=== PATIENT | male | born 1950 | race Caucasian/White ===

== ENCOUNTER 2016-10-17 18:24 | Observation (INO) | payer MEDICARE, OTHER ==
[2016-10-17] MEDS ORDERED: NITROGLYCERIN 0.4 MG 25 EA TAB SL ONE ×4 (18:29→22:54)
[2016-10-17] MEDS ORDERED: ASPIRIN (CHEWABLE) 81 MG TAB PO ONE (18:29)
--- NOTE | 2016-10-17 18:33 | ED.PDOC ---
History of Present Illness - General Chief Complaint: Chest Pain/AR Stated Complaint: Chest pain Time Seen by Provider: 10/17/16 18:29 Source: patient, RN notes reviewed Exam Limitations: no limitations - History of Present Illness Initial Comments: Patient reports intermittent chest pain that radiates to his arms and left neck with associated nausea, SOB and diaphoresis. Pain eases with rest and worsens with activity. He went to the dentist and had 2 teeth pulled today. When they gave him the lidocaine he said his chest pain got much worse. Similar to prior cardiac issues. He has 4 coronary stents, last placed in 2014. Timing/Duration: 7-24 hours - Noticed when he woke this morning at 6:30am Severity: moderate - currently 5/10 Location: substernal, central Activities at Onset: activity Prior Chest Pain/Cardiac Workup: angina, cardiac cath Improving Factors: rest Worsening Factors: movement - activity Nitro Today/Relief: no nitro taken today, 0.4 mg x 3 Associated Symptoms: chest pain, diaphoresis, nausea/vomiting, shortness of breath, weakness - in legs Allergies/Adverse Reactions: Allergies NO KNOWN ALLERGY Allergy (Verified 10/17/16 18:49) Review of Systems - Review of Systems Constitutional: States: diaphoresis, weakness. Denies: chills, fever, malaise EENTM: States: no symptoms reported Respiratory: States: short of breath. Denies: cough, stridor Cardiology: States: chest pain - Radiates to bilateral arms, L neck and mid back . Denies: edema, palpitations, syncope Gastrointestinal/Abdominal: States: nausea. Denies: abdominal pain, vomiting Genitourinary: States: no symptoms reported Musculoskeletal: States: back pain Skin: States: no symptoms reported Neurological: States: weakness - Bilateral legs when his chest pain gets bad Hematologic/Lymphatic: States: no symptoms reported Family Medical History - Family History Father Hx Cardiac Disease: Yes Physical Exam - Physical Exam General Appearance: Alert, No apparent distress, Well Developed, Well Groomed, Well Hydrated, Well Nourished Neck: non-tender, full range of motion, supple, normal inspection Respiratory: chest non-tender, lungs clear, normal breath sounds, no respiratory distress, no accessory muscle use Cardiovascular/Chest: regular rate, rhythm, no edema, no gallop, no JVD, no murmur Gastrointestinal/Abdominal: normal bowel sounds, non tender, soft Extremity: normal range of motion, non-tender, normal inspection Neurologic: no motor/sensory deficits, alert, normal mood/affect, oriented x 3 Skin Exam: normal color, warm/dry Lymphatic: no adenopathy Comments: Vital Signs - 24 hr 10/17/16 10/17/16 10/17/16 18:30 18:31 18:41 Temperature 99.5 F Pulse Rate [RA] 90 Respiratory 20 16 20 Rate Blood Pressure 169/99 142/87 [RA] O2 Sat by Pulse 99 100 Oximetry 10/17/16 19:29 Temperature Pulse Rate [RA] 86 Respiratory 20 Rate Blood Pressure 122/76 [RA] O2 Sat by Pulse 96 Oximetry Progress - Progress Progress: 10/17/16 18:41 Patient noted some initial improvement after 1st SLNTG but pain quickly returned. Will given 2nd dose. 10/17/16 18:45 Still no improvement in CP after 2nd SLNTG, if no improvement after #3 will give Morphine. 10/17/16 20:20 Pain improved with Morphine but not resolved. Will admit for cardiac rule out - Discussed with Hospitalist Will give another 4mg of Morphine and 1" of Nitropaste - Results/Orders Results/Orders: Laboratory Tests 10/17/16 18:39 WBC 9.7 RBC 4.94 Hgb 16.7 Hct 49.2 MCV 99.5 H MCH 33.7 H MCHC 33.8 RDW 13.5 Plt Count 169 MPV 8.7 Absolute Neuts (auto) 7.80 H Absolute Lymphs (auto) 0.50 L Absolute Monos (auto) 1.20 H Absolute Eos (auto) 0.00 Absolute Basos (auto) 0.00 Neutrophils % 80.8 H Lymphocytes % 5.5 L Monocytes % 12.8 H Eosinophils % 0.4 L Basophils % 0.5 D-Dimer, Quantitative < 200 Sodium 133 L Potassium 3.8 Chloride 100 L Carbon Dioxide 24 Anion Gap 12.8 BUN 21 H Creatinine 0.89 BUN/Creatinine Ratio 23.6 H Random Glucose 149 H Serum Osmolality 272.2 L Calcium 9.4 Total Bilirubin 0.6 AST 20 ALT 20 Alkaline Phosphatase 77 Creatine Kinase 185 H CK-MB (CK-2) 4.0 CK-MB (CK-2) % 2.16 Troponin I < 0.02 Serum Total Protein 7.0 Albumin 4.5 Globulin 2.5 Albumin/Globulin Ratio 1.8 - EKG/XRAY/CT EKG: Sinus, no ST T wave changes Comments: Rate 91bpm Departure - Departure Clinical Impression: Angina at rest Chest pain Qualifiers: Chest pain type: chest pain due to myocardial ischemia Qualifier Code: (I20.9) Angina pectoris, unspecified Time of Disposition: 20:19 Disposition: Admit Patient Condition: Fair Decision To Admit - Decistion To Admit Decision to Admit Reason: Admit from ER - Cardiac Rule out
[2016-10-17] MEDS ORDERED: MORPHINE SULFATE INJ 10 MG/ML VIAL IV ONE ×2 (18:53→20:11)
--- NOTE | 2016-10-17 19:18 | RAD ---
EXAM DESCRIPTION: Chest,1 View CLINICAL HISTORY: Atypical chest wall pain COMPARISON: None FINDINGS: Cardiac silhouette is within normal limits. Aorta is tortuous. EKG leads project over the chest. There is no focal parenchymal or pleural disease. There is no acute osseous process visualized. IMPRESSION: No evidence of acute cardiopulmonary disease. Electronically signed by: Emerson Asencio MD 10/17/2016 7:17 PM CDT
[2016-10-17] MEDS ORDERED: NITROGLYCERIN 2% 1 GM UD TOP ONE (20:11)
[2016-10-17] MEDS ORDERED: ONDANSETRON INJ 4 MG/2 ML VIAL IV ONE (20:24)
[2016-10-17] MEDS ORDERED: NITROGLYCERIN 0.4 MG/HR PATCH TOP ONE (22:29)
[2016-10-17] MEDS ORDERED: MORPHINE SULFATE INJ 10 MG/ML VIAL IV PRN (22:54)
[2016-10-17] MEDS ORDERED: ACETAMINOPHEN 325 MG TAB PO PRN (22:54)
[2016-10-17] MEDS: NITROGLYCERIN 0.4 MG 25 EA TAB SL PRN ×3 (22:56→23:48)
[2016-10-17] MEDS ORDERED: IV SET AND CAP CHANGE INJ INJ SCH (23:00)
[2016-10-17] MEDS ORDERED: SODIUM CHLORIDE 0.9% 500ML 500 ML IVS ONE (23:08)
[2016-10-17] MEDS: SODIUM CHLORIDE 0.9% (FLUSH) 10 ML SYG IV PRN (23:15)
[2016-10-17] MEDS ORDERED: ENOXAPARIN SODIUM 80 MG/0.8 ML SYG SUBCU ONE (23:22)
[2016-10-18] MEDS ORDERED: ALPRAZolam 0.25 MG TAB PO ONE (00:05)
[2016-10-18] MEDS ORDERED: SODIUM CHLORIDE 0.9% 10 ML VIAL ONE (00:06)
[2016-10-18] MEDS: SODIUM CHLORIDE 0.9% (FLUSH) 10 ML SYG IV PRN (00:10)
[2016-10-18 00:23] VITALS: O2SAT 95
[2016-10-18] MEDS ORDERED: NITROGLYCERIN/D5W IV 250 ML IVS ONE (00:59)
[2016-10-18] MEDS ORDERED: NITROGLYCERIN/D5W IV 250 ML IVS SCH (01:30)
[2016-10-18] MEDS ORDERED: SODIUM CHLORIDE 0.9% 500ML 500 ML IVS ONE (01:30)
[2016-10-18 07:39] VITALS: BP 125/69; TEMP 98.7
[2016-10-18] MEDS ORDERED: NITROGLYCERIN 0.4 MG/HR PATCH TOP SCH (09:00)
[2016-10-18] MEDS ORDERED: ASPIRIN TABLET 325 MG TAB PO SCH (09:00)
[2016-10-18] MEDS ORDERED: SODIUM CHLORIDE 0.9% (FLUSH) 10 ML SYG IV SCH (09:00)
--- NOTE | 2016-10-18 11:02 | SSS ---
SUPERVISING PHYSICIAN: Vimal Saini MD CHIEF COMPLAINT: Chest pain. HISTORY OF PRESENT ILLNESS: Mr. Vazquez is a 66 year-old male paroxysmal atrial tachycardia with a significant cardiac history, having had multiple stents x4 in the last several years with the last coronary stent being placed in 2014. Today he reported to the Emergency Department reporting he has had intermittent chest pains radiating to his arms, throughout the neck and associated with nausea, shortness of breath, diaphoresis. The pain was eased with some rest but worsened with any activity. He noted he had gone to the dentist on the date of admission and had 2 teeth pulled. When he was given lidocaine he started having significant chest pains. He also notes he has been having these chest pains over the last 30 days that have steadily become worse at times where he can not even walk across the room without becoming significantly symptomatic. In the Emergency Department, initially his pain was rated 5/10. He was given 3 nitro with some relief and then morphine resulted in complete relief. Initially, cardiac enzymes were negative as well as EKG which showed nonspecific ST changes, No ST elevation, more of a sinus rhythm. Given that he was pain-free and no changes in laboratory studies or EKG, the patient was placed in observation for further rule out acute myocardial injury and placed on telemetry. Approximately 2 hours after being on telemetry, his pain returned and described it as tightness in his chest that started radiating once again to both arms. He was once again given nitro with good results and some relief. Initially, he had a nitro patch placed in the Emergency Room. This was changed to a nitro patch at 0.4 mics per hour and again given some morphine. Given that his pain was unstable and returned even at rest and was slowly escalating, given the patient's significant cardiac history, the patient is now going to be transferred to [facility] for cardiology consultation and further evaluation. He was stable on admission to the medical/ surgical floor and at time of transfer. PAST MEDICAL HISTORY: 1. Cardiovascular disease with multiple coronary stents with last stent being placed in 2014. 2. Hypertension. 3. Diabetes mellitus type 2 on oral therapy. PAST SURGICAL HISTORY: 1. Double hernia repair. 2. Hemorrhoidectomy. 3. Left knee scope. 4. Coronary stents x4, last in 2014. HOME MEDICATIONS: Please refer to updated list in electronic medical records for a verified list of home medications. ALLERGIES: No known drug allergies. FAMILY HISTORY: Significant for cardiac disease. SOCIAL HISTORY: The patient lives in [place], recently moved to [place]. He is , he is an [employer] , currently retired from [employer]. He did smoke in the past but has stopped since 1996. He denies any alcohol or illicit drug use. REVIEW OF SYSTEMS: CONSTITUTIONAL: Noted some diaphoresis and weakness but denies any chills, fever or malaise. HEENT: Denies any symptoms. RESPIRATORY: Notable for shortness of breath as noted in the history of present illness but denies any cough or stridors. CARDIOVASCULAR: As noted in the history of present illness, positive for chest pain that radiates down left arm, left neck and back. Denies any edema, palpitations or syncopal episodes. GI: Does note some nausea but denies any vomiting, abdominal pain, diarrhea or constipation. : Denies increased dysuria, hematuria or other urinary symptoms. NEUROLOGICAL: Notes he has had some weakness in bilateral legs when he has the chest pains and with any exertional dyspnea but denies any syncopal episodes, PHYSICAL EXAMINATION: VITAL SIGNS: At time of transfer, Blood pressure 125/69, pulse 61, saturation 95% on room air with temperature 98.1,. Admission weight 79.1 kilograms. GENERAL: On admission to the medical/surgical floor, the patient was in no distress, however, after his chest pains the patient became quite anxious but he is well groomed and well hydrated and appears to be well-nourished. HEENT: Tympanic membranes clear bilaterally. Oropharynx pink and moist without any lesions. NECK: No jugular venous distention. CHEST: Clear to auscultation bilaterally without notable rhonchi, rales, or wheezes. CARDIOVASCULAR: Regular rate and rhythm without appreciable murmurs, rubs, or gallops. ABDOMEN: Soft, non-tender, positive bowel sounds. EXTREMITIES: No cyanosis, clubbing, or edema. NEUROLOGIC: Alert and oriented x3 with no motor or sensory deficits noted. LABORATORY: CBC on admission showed a white count 9.7, hemoglobin 16.7, hematocrit 49.2, platelet count 169,000, differential did show a left shift. Coagulation studies showed PT/PTT to be normal with a D dimer less than 200. Chemistries showed slightly low sodium of 133, potassium 3.8, BUN 21, creatinine 0.9. Glucose 149, calcium 94, magnesium 1.9. Liver function studies within normal limits. Initial CPK was elevated at 185, repeat prior to discharge was 143. Troponin x2 was less then 0.2 initially and 6 hours post admission was less than 0.02. Initial EKG showed normal sinus rhythm with no ST changes noted. Repeat EKG at time of onset of chest pains prior to discharge showed a normal sinus rhythm with no ST changes or ischemic changes noted. RADIOLOGY: Chest x-ray per radiology interpretation showed no evidence of acute cardiopulmonary disease. ASSESSMENT: 1. Chest pain with unstable angina with no ST elevation or enzyme elevation with the patient having a significant cardiac past history with previous stents, last being in 2014. 2. Hypertension. 3. Diabetes mellitus type 2. 4. History of significant cardiovascular disease with multiple coronary stents. HOSPITAL COURSE: The patient was initially admission from the Emergency Department with chest pain in the Emergency Room that resolved prior to admission to the medical/surgical floor. He was admitted in stable condition and placed on telemetry for rule out of further myocardial injury. He was placed on telemetry and approximately 2 hours after admission started having additional chest pains at rest and was given initially a nitro patch 0.4 per hour and sublingual nitro which did resolve with good result in the pain, decreased somewhat from initial reported 7/10 down to 4/10. He was given a bolus of normal saline as he did have a slight drop in his blood pressure in order to initiate a nitro drip to further control his pain. He was given some morphine which did decrease the pain to some degree but was again intermittent both in intensity and radiating to both arms. Given the patient's significant cardiovascular history with previous stents last being in 2014 and the intermittent chest pains being unstable despite patient resting, the patient requires transfer to higher level of care for further evaluation with cardiology services. PLAN: The patient initially was admitted to the medical/surgical floor and put on telemetry. He was given aspirin in the Emergency Department and placed on a nitro patch. He is now going to be transferred to [facility] for further high level of care for cardiology as there are none available at [facility]. Dr. Marte, hospitalist at [facility], graciously accepted the patient in transfer to [facility]. The patient is to be transferred via ground ambulance with emergency room specialist, necktie operator pockets and pieces and a nitro drip in place. The patient is stable at discharge. Vital signs: blood pressure showed to be 125/69 with pulse 61, saturation 95% on room air. The pain was 2/10. The patient's condition at transfer was stable but guarded. Once the patient is discharged, he will need close followup with primary care physician in [place], he currently sees providers at [facility]. #[id number] MTDD
== END 2016-10-18 01:50 | disposition short-term general hospital (02) ==
LOC: ER 18:24 → MS 20:16
PROVIDERS: ADMIT Nurse Practitioner Family; ATTEND Nurse Practitioner Family
DX: I25.110 Atherosclerotic heart disease of native coronary artery with unstable angina pectoris (principal); R07.2 Precordial pain; I10 Essential (primary) hypertension; E11.9 Type 2 diabetes mellitus without complications; I47.1 Supraventricular tachycardia; R06.02 Shortness of breath; Z95.5 Presence of coronary angioplasty implant and graft; Z79.84 Long term (current) use of oral hypoglycemic drugs; Z87.891 Personal history of nicotine dependence; Z82.49 Family history of ischemic heart disease and other diseases of the circulatory system
CPT/HCPCS: 36415; 71010; 80053; 82550 ×2; 82553 ×2; 83735; 84484 ×2; 85025; 85379; 85610; 85730; 93005; 94760 ×2; J1650; J2270 ×3; J2405; J7040 ×2

== ENCOUNTER → 2017-06-22 | Outpatient (CLI) | payer MEDICARE, OTHER ==
--- NOTE | 2017-06-23 05:34 | RAD ---
EXAM DESCRIPTION: Chest,2 Views CLINICAL HISTORY: DYSPNEA COMPARISON: 10/17/2016 FINDINGS: Frontal and lateral views of the chest. Tortuosity of the thoracic aorta. Heart is not enlarged. Mild chronic interstitial opacities are unchanged. No consolidation, pneumothorax, or pleural effusion. No displaced rib fractures identified. Upper abdominal soft tissues are unremarkable. IMPRESSION: 1. No acute pneumonic process identified. Electronically signed by: George Alonzo 06/23/2017 5:33 AM [facility]
== END | disposition home or self-care (01) ==
LOC: RAD 16:13
PROVIDERS: ATTEND Nurse Practitioner Family
DX: R06.00 Dyspnea, unspecified (principal)

== ENCOUNTER 2017-12-15 17:39 | Observation (INO) | payer MEDICARE, OTHER ==
--- NOTE | 2017-12-15 17:51 | ED.PDOC ---
History of Present Illness - General Chief Complaint: Cardiovascular Problem Stated Complaint: chest pain Time Seen by Provider: 12/15/17 17:50 Source: patient Exam Limitations: no limitations - History of Present Illness Initial Comments: Angelo Vazquez 67 y/o male with history of DM2 and cardiac stent placement x 3 came to er with on and off dull chest pains for the last two weeks sometimes walking just a few feet aggravates it.This afternoon stated he was taking it easy and ahd another chest pain symptoms which was worse than previous symptoms got clammy with SOB.Decided to come to ER.Had taken 4 baby aspirins today but no NTG.Stated had stress test done in [facility] a year ago but stated no abnormalities noted so no further cardiac work up done.His chest pains eased off on arrival at ER. Timing/Duration: other - see hpi Severity/Quality: dull Location: central Chest Pain Radiation: arms Activities at Onset: rest Prior Chest Pain/Cardiac Workup: angina, stress test, other - see hpi Improving Factors: nothing Worsening Factors: nothing Nitro Today/Relief: no nitro taken today Aspirin Treatment Today: 81 mg x 4 Associated Symptoms: shortness of breath Allergies/Adverse Reactions: Allergies NO KNOWN ALLERGY Allergy (Verified 12/15/17 17:54) Review of Systems - Review of Systems EENTM: States: no symptoms reported Respiratory: States: no symptoms reported Cardiology: States: see HPI Gastrointestinal/Abdominal: States: no symptoms reported Genitourinary: States: no symptoms reported All other Systems: Reviewed and Negative, No Change from Baseline Past Medical History (General) - Patient Medical History Hx Seizures: No Hx Stroke: No Hx Asthma: No Hx of COPD: No Hx Cardiac Disorders: Yes Hx Congestive Heart Failure: Yes Hx Pacemaker: No Hx Hypertension: Yes Hx Diabetes: Yes Hx Cancer: No Hx MRSA: No Surgical History: other - hernia repair ,cardiac stent - Social History Hx Alcohol Use: No Hx Substance Use: No Hx Physical Abuse: No Hx Emotional Abuse: No Family Medical History - Family History Father Living Status: Hx Family Asthma: No Hx Family Congestive Heart Failure: Yes Hx Family Hypertension: Yes Hx Family Stroke: No Hx Cardiac Disease: Yes Hx Family Diabetes: No Hx Family Cancer: No Physical Exam - Physical Exam General Appearance: Alert, Comfortable, No apparent distress Eyes, Ears, Nose, Throat Exam: normal ENT inspection Neck: non-tender, full range of motion, normal inspection Respiratory: chest non-tender, lungs clear, normal breath sounds, no respiratory distress Cardiovascular/Chest: normal peripheral pulses, regular rate, rhythm, no murmur Peripheral Pulses: radial,right: 2+, radial,left: 2+ Gastrointestinal/Abdominal: normal bowel sounds, non tender, soft, no organomegaly Extremity: non-tender, normal inspection, no pedal edema, no calf tenderness Neurologic: alert, oriented x 3 Skin Exam: normal color, warm/dry Progress - Progress Progress: 12/15/17 19:13 Vital Signs - 8 hr 12/15/17 12/15/17 17:45 19:03 Temperature 97.9 F 97.2 F L Pulse Rate [ 71 59 L pulse ox] Respiratory 20 18 Rate Blood Pressure 157/98 138/85 [Left Arm] O2 Sat by Pulse 98 97 Oximetry - Results/Orders Results/Orders: Stated he is on diuretics,potassium pill,cholesterol pill but he ran out of his cholesterol and potassium pill the last 2 weeks.Prescription send thru mail. 12/15/17 18:00 EKG STAT 12/15/17 19:15 KCl 40Meq/Ns [NS W/ KCL 40 meq/Liter] 1,000 ml IVS .QD 12/15/17 20:42 URINALYSIS Stat 12/15/17 21:19 ED Intent to Admit Routine Laboratory Results - last 24 hr 12/15/17 12/15/17 12/15/17 18:00 18:00 20:12 WBC 8.4 RBC 4.86 Hgb 16.8 Hct 48.3 MCV 99.4 H MCH 34.6 H MCHC 34.9 RDW 13.8 Plt Count 216 MPV 7.7 Absolute Neuts (auto) 5.70 Absolute Lymphs (auto) 1.60 Absolute Monos (auto) 1.00 H Absolute Eos (auto) 0.10 Absolute Basos (auto) 0.00 Neutrophils % 67.5 Lymphocytes % 18.9 L Monocytes % 11.6 H Eosinophils % 1.5 Basophils % 0.5 PT 9.3 L INR 0.800 PTT (SP) 31.5 D-Dimer, Quantitative < 230 Sodium 126 L Potassium 3.0 L Chloride 88 L Carbon Dioxide 27 Anion Gap 14.0 BUN 11 Creatinine 0.88 BUN/Creatinine Ratio 12.5 Random Glucose 149 H Serum Osmolality 255.6 L Calcium 9.3 Magnesium 2.1 Total Bilirubin 0.5 Direct Bilirubin < 0.1 Indirect Bilirubin 0.4 AST 25 ALT 29 Alkaline Phosphatase 69 Creatine Kinase 194 H CK-MB (CK-2) 5.4 H* CK-MB (CK-2) % 2.78 Troponin I 0.02 0.04 B-Natriuretic Peptide 33.2 Serum Total Protein 7.3 Albumin 4.3 Recommended to go to [facility]- patient wants to stay here in [place] after discussing ekg and lab result that initially no acute myocardial injury noted. - EKG/XRAY/CT EKG: Sinus Comments: HR-62;pr interval:212 ms XRAY: chest - no acute heart/lung abnormalities Departure - Departure Clinical Impression: Hypokalemia, Hyponatremia with decreased serum osmolality Chest pain Qualifiers: Chest pain type: chest pain due to myocardial ischemia Ischemic chest pain type : unspecified angina pectoris type Qualified Code(s): I20.9 - Angina pectoris, unspecified Time of Disposition: 21:21 Disposition: Admit Patient Departure Forms: Patient Portal Self Enrollment Referrals: Saray Dobson NP [Primary Care Provider] - 1-2 Weeks Decision To Admit - Decistion To Admit Decision to Admit Reason: Admit from ER - chest pain R/O HI Decision to Admit Date: 12/15/17 - D/W Ubaldo Mccollum-ANP/Hospitalist Decision to Admit Time: 21:19
--- NOTE | 2017-12-15 18:24 | RAD ---
EXAM DESCRIPTION: Chest,1 View CLINICAL HISTORY: pain COMPARISON: 06/22/2017 FINDINGS: Cardiac silhouette is within normal limits. There is no focal parenchymal or pleural disease. Visualized osseous structures are within normal limits. IMPRESSION: No evidence of acute cardiopulmonary disease. Electronically signed by: Julio Wall 12/15/2017 6:23 PM CDT
[2017-12-15] MEDS: KCL 40MEQ/NS 1,000 ML IVS PRN (19:24)
[2017-12-15] MEDS ORDERED: NITROGLYCERIN 0.4 MG/HR PATCH TOP ONE (19:29)
[2017-12-15] MEDS ORDERED: ATORVASTATIN 20 MG TAB PO ONE (21:20)
[2017-12-15] MEDS ORDERED: ALPRAZolam 0.25 MG TAB PO ONE (21:36)
--- NOTE | 2017-12-15 21:39 | HP ---
SUPERVISING PHYSICIAN: Vimal Saini MD CHIEF COMPLAINT: Chest pain. HISTORY OF PRESENT ILLNESS: This is a 67-year-old male patient who came to the Emergency Room at around 6 PM with chest pain. The patient does have a history of coronary artery disease. He has had stents in the past, but has had some dull chest pains on and off for the last two weeks. He states that just some simple walking aggravates it at times, but today he had chest pain with pressure and bilateral arm pain. He got clammy along with some shortness of breath, took four aspirin and came to the Emergency Room. At that point, his pain seemed to be resolving. In the Emergency Room, he was noted to have negative troponin and his EKG showed sinus rhythm with no acute ST changes. His potassium and sodium were low. He stated he takes potassium pills with his diuretics, but ran out of some his medications approximately two weeks. He gets them via mail order through the [facility] and sees the [facility] for all of his medical issues. He had a subsequent troponin which was also negative and, therefore, he was referred for observation for rule out acute coronary syndrome. At time of examination, the patient states he has a little bit of discomfort in his chest, but no shortness of breath and no overt pain at this time. He states he took some Prilosec [id number] as well due to his pain thinking it might have been some reflux as well. PAST MEDICAL HISTORY: 1. Coronary artery disease. 2. Hypertension. 3. Hyperlipidemia. 4. Diabetes mellitus. 5. Congestive heart failure. 6. He used to have kidney infections, but does not have them any longer. 7. PTSD. PAST SURGICAL HISTORY: 1. Multiple hernia repairs. He had inguinal hernia repairs as well as abdominal hernia repairs with revisions in the past. 2. Appendectomy within one of those surgeries. 3. Percutaneous transluminal coronary angioplasty with stents x4 I believe he said in the past. I am not sure which vessels those were. CURRENT MEDICATIONS: The patient does not know his medications off the top of his head. He is going to get a family member to get them for him. He knows he takes lisinopril, metoprolol, BuSpar and Zoloft, but does not know the dosing. That is not all the medications he takes, either. ALLERGIES: NO KNOWN DRUG ALLERGIES. FAMILY HISTORY: Coronary artery disease in his father who is . SOCIAL HISTORY: The patient had a distant history of smoking. He smoked a pack per day until 1996, then quit. He rarely drinks. No illegal drugs in the past. REVIEW OF SYSTEMS: CONSTITUTIONAL: No fever or chills. No recent weight loss or weight gain. HEENT: No headaches, vision changes, ear pain, nasal congestion or throat pain. RESPIRATORY: No cough, hemoptysis or pleuritic chest pain. CARDIOVASCULAR: Positive for chest pain. No palpitations or peripheral edema. GASTROINTESTINAL: No nausea, vomiting, diarrhea, constipation or abdominal pain. GENITOURINARY: No dysuria, frequency or flank pain. HEMATOLOGIC: No easy bruising and no transfusion reaction. ENDOCRINE: No polydipsia, polyuria, polyphagia. No heat or cold intolerance. NEUROLOGIC: No dizziness, syncope, paresthesias. PHYSICAL EXAMINATION: VITAL SIGNS: Blood pressure 130/70. Heart rate 52. Respiratory rate 20. Temperature 97.5. Oxygen saturation 98%. GENERAL: Mr. Vazquez is a 67-year-old male who is in no active distress currently. HEENT: Normocephalic, atraumatic. Pupils are equal and reactive. No nasal drainage. Throat with moist mucosa. NECK: Supple. Midline trachea. No jugular venous distention. CHEST: Symmetrical with equal rise and fall of the chest with inspiration and expiration. Lung sounds are clear to auscultation bilaterally. CARDIOVASCULAR: Regular rate and rhythm. Normal S1, S2. ABDOMEN: Soft. Positive bowel sounds. GENITOURINARY: Deferred. EXTREMITIES: Lower extremities with no edema. Peripheral pulses are 2+. Capillary refill is less than 2 seconds. NEUROLOGIC: The patient is alert and oriented. Moves all extremities. Extraocular movements are intact. LABORATORIES AND FILMS: Chest x-ray with no acute abnormalities. White count normal, hemoglobin 16.8, sodium 126, potassium 3.0, chloride 88, CO2 27, BUN 11 , creatinine 0.88, glucose 149, calcium 9.3. Troponin 0.02 and subsequent troponin 0.04. ASSESSMENT: 1. Chest pain, rule out acute coronary syndrome. 2. History of coronary artery disease status post stents in the past. 3. Hypertension, currently controlled. 4. Diabetes mellitus. 5. Hypokalemia. PLAN: At this point, we will place him on a chest pain protocol which will be serial EKGs and cardiac enzymes. So far, they are negative. He does have a history of coronary artery disease, there is always the concern for an actual event. We are going to put him on a proton pump inhibitor as well and reevaluate him in the morning. The serial labs will be throughout the night and they will call with any positive results or worsening in his condition. Once he has his home medications here, we can verify those and resume those as well. #[id number] [facility]
[2017-12-15] MEDS ORDERED: ACETAMINOPHEN 325 MG TAB PO PRN (21:53)
[2017-12-15] MEDS ORDERED: SODIUM CHLORIDE 0.9% (FLUSH) 10 ML SYG IV PRN (21:53)
[2017-12-15] MEDS ORDERED: NITROGLYCERIN 0.4 MG 25 EA TAB SL PRN (21:53)
[2017-12-15] MEDS ORDERED: IV SET AND CAP CHANGE INJ INJ SCH (22:00)
[2017-12-15] MEDS ORDERED: METOPROLOL TARTRATE 25 MG TAB PO ONE (22:16)
[2017-12-15] MEDS ORDERED: GLUCAGON INJ 1 MG VIAL SUBCU PRN (22:44)
[2017-12-15] MEDS ORDERED: DEXTROSE 50% 25 GM/50 ML SYG IV PRN (22:44)
[2017-12-16] MEDS: KCL 40MEQ/NS 1,000 ML IVS PRN (01:17)
[2017-12-16] MEDS: MORPHINE SULFATE INJ 10 MG/ML VIAL IV PRN ×2 (04:28)
[2017-12-16 06:20] VITALS: BP 111/63; TEMP 97.9
[2017-12-16] MEDS ORDERED: PANTOPRAZOLE SODIUM TAB 40 MG PO SCH (06:30)
[2017-12-16] MEDS ORDERED: HEPARIN PREMIX 25,000 UNITS in PREMIX BAG 1 BAG IVS SCH (06:30)
[2017-12-16] MEDS ORDERED: INSULIN LISPRO 100 UNITS/ML PEN SUBCU SCH (07:00)
[2017-12-16] MEDS ORDERED: HEPARIN PREMIX 500 ML ONE (07:15)
[2017-12-16] MEDS ORDERED: HEPARIN SODIUM (PORCINE) 5,000 U/ML VIAL ONE (07:17)
[2017-12-16] MEDS ORDERED: METOPROLOL TARTRATE 25 MG TAB PO SCH (07:30)
[2017-12-16 07:40] VITALS: O2SAT 95
[2017-12-16] MEDS ORDERED: HEPARIN SODIUM (PORCINE) 5,000 U/ML VIAL IV ONE (08:31)
--- NOTE | 2017-12-16 08:37 | DS ---
SUPERVISING PHYSICIAN: Vimal Saini MD DISCHARGE/TRANSFER SUMMARY DISCHARGE DIAGNOSIS: 1. Chest pain, rule out acute coronary syndrome with positive cardiac enzymes. 2. History of coronary artery disease with myocardial infarctions in the past. 3. Diabetes mellitus, type 2. 4. Hypertension. 5. Hypokalemia. HOSPITAL COURSE: This is a 67-year-old male patient who came to the Emergency Room with chest pain. Initially, his cardiac enzymes were negative with an EKG which did not indicate any myocardial infarction. He was placed in the Medical/ Surgical Unit on telemetry for chest pain observation. His subsequent cardiac enzymes were initially negative, however, this morning, his troponin went up to 0.08. Additionally, he did have some chest pain around 4:30 in the morning for which he got some morphine. Once the troponin was back, I reviewed his EKG which showed a little bit of T-wave abnormality, but no actual ST segment changes. He was still having to discomfort around 2 to 3/10 even after the morphine. There was no shortness of breath or diaphoresis, however, given the patient's history, I did facilitate a transfer to [facility]. I spoke with Dr. Valles, the hospitalist, and he accepted the transfer. Therefore, the patient is being transferred in stable condition. I did order heparin drip prior to discharge to be started. #[id number] [facility]
[2017-12-16] MEDS ORDERED: ASPIRIN TABLET 325 MG TAB PO SCH (09:00)
[2017-12-16] MEDS ORDERED: SODIUM CHLORIDE 0.9% (FLUSH) 10 ML SYG IV SCH (09:00)
== END 2017-12-16 07:05 | disposition short-term general hospital (02) ==
LOC: ER 17:39 → MS 21:38
PROVIDERS: ADMIT Nurse Practitioner; ATTEND Nurse Practitioner
DX: R07.89 Other chest pain (principal); I25.10 Atherosclerotic heart disease of native coronary artery without angina pectoris; E87.6 Hypokalemia; E87.1 Hypo-osmolality and hyponatremia; E11.9 Type 2 diabetes mellitus without complications; I11.0 Hypertensive heart disease with heart failure; I50.9 Heart failure, unspecified; R06.02 Shortness of breath; E78.5 Hyperlipidemia, unspecified; I25.2 Old myocardial infarction; F43.10 Post-traumatic stress disorder, unspecified; Z95.5 Presence of coronary angioplasty implant and graft; Z79.899 Other long term (current) drug therapy; Z87.891 Personal history of nicotine dependence; Z82.49 Family history of ischemic heart disease and other diseases of the circulatory system
CPT/HCPCS: 96375; 96376; J1644 ×2; J2270 ×2; J3480 ×2; 85379; 82553 ×3; 82948; 80061; 36415 ×5; 82550 ×3; 80048; 85025; 85730; 85610; 84484 ×4; 81001; 80076; 83880; 36416; 71045; 99285; 93005 ×3; G0378; 96374

== ENCOUNTER → 2018-01-14 | Outpatient (CLI) | payer MEDICARE, OTHER ==
--- NOTE | 2018-01-14 18:32 | RAD ---
EXAM DESCRIPTION: KUB CLINICAL HISTORY: RT FLANK PAIN COMPARISON: None Available. TECHNIQUE: KUB FINDINGS: There is an unremarkable bowel gas pattern. There is no mass or renal calculus observed. Phlebolith in the left pelvis incidentally noted. IMPRESSION: Normal. Electronically signed by: Paxton Colmenares MD 01/14/2018 6:31 PM CDT
== END ==
LOC: YCFC.O 12:03
DX: R10.9 Unspecified abdominal pain (principal); E11.9 Type 2 diabetes mellitus without complications

== ENCOUNTER 2018-01-15 14:07 | Inpatient (IN) | payer OTHER ==
--- NOTE | 2018-01-15 14:56 | ED.PDOC ---
History of Present Illness - General Chief Complaint: General Stated Complaint: weakness and low sodium Time Seen by Provider: 01/15/18 14:51 Source: patient, EMS, other - clinic [employer] report Exam Limitations: no limitations - History of Present Illness Initial Comments: patient comes in today for weakness and low sodium and potassium levels. Patient states about a week ago he started feeling ill. Sinus congestion and thought perhaps he had a sinus infection. As the week progressed became a little bit short of breath and did notice that his angina was little bit more present and had been in the weeks prior. Additionally he felt very weak and noticed that he started having some right-sided flank pain that was sharp and at times radiating around his abdomen consistent with passed kidney stones. Patient was seen yesterday in the clinic and urinalysis showed hematuria and patient was sent for x-ray of his kidneys but he has not had results for that yet. Patient states additionally he had blood work done. He was called today and told to his salt and potassium levels were very low and he should come to the emergency room if he continues to feel very sick and weak. Patient states the on the pain he has very diffuse symptoms with just "all over not feeling good". He had a major heart attack with stent placed about a year ago and patient knows he has some coronary artery disease that is not treatable with stent placement because of the size of the arteries. Patient states other he's had a little bit of his angina chest discomfort he does not have overt chest pain at this time and does not feel like when he had his heart attack. Patient denies any cough or congestion. His sinus congestion has resolved. He denies any wheezing or pedal edema. Timing/Duration: 1 week Severity: moderate Improving Factors: nothing Worsening Factors: nothing Associated Symptoms: malaise Allergies/Adverse Reactions: Allergies NO KNOWN ALLERGY Allergy (Verified 12/15/17 17:54) Review of Systems - Review of Systems Constitutional: States: malaise, weakness. Denies: chills, diaphoresis, fever EENTM: States: nose congestion. Denies: eye pain, ear pain, nose pain, throat pain Respiratory: States: short of breath. Denies: cough, wheezing Cardiology: States: chest pain. Denies: edema, palpitations, syncope Gastrointestinal/Abdominal: Denies: abdominal pain, constipation, diarrhea, nausea, vomiting Genitourinary: States: hematuria Musculoskeletal: States: no symptoms reported Skin: States: no symptoms reported Neurological: States: no symptoms reported Past Medical History (General) - Patient Medical History Hx Seizures: No Hx Stroke: No Hx Asthma: No Hx of COPD: No Hx Cardiac Disorders: Yes Hx Congestive Heart Failure: No Hx Pacemaker: No Hx Hypertension: Yes Hx Diabetes: Yes Hx Cancer: No Hx MRSA: No - Vaccination History Hx Influenza Vaccination: Yes Hx Pneumococcal Vaccination: Yes - Social History Hx Tobacco Use: No Hx Alcohol Use: No Hx Substance Use: No Hx Physical Abuse: No Hx Emotional Abuse: No Family Medical History - Family History Father Living Status: Hx Family Asthma: No Hx Family Congestive Heart Failure: Yes Hx Family Hypertension: Yes Hx Family Stroke: No Hx Cardiac Disease: Yes Hx Family Diabetes: No Hx Family Cancer: No Mother Living Status: Age at (years of age): 82 Cause of : old age natural Physical Exam - Physical Exam General Appearance: Alert, Comfortable, No apparent distress Eye Exam: bilateral normal Ears, Nose, Throat: hearing grossly normal, normal ENT inspection, normal pharynx Neck: non-tender, full range of motion, supple, normal inspection Respiratory: chest non-tender, lungs clear, normal breath sounds, no respiratory distress Cardiovascular/Chest: normal peripheral pulses, regular rate, rhythm, no edema, no gallop, no JVD, no murmur Peripheral Pulses: radial,right: 2+, radial,left: 2+ Gastrointestinal/Abdominal: normal bowel sounds, non tender, soft, no organomegaly, no pulsatile mass Back Exam: CVA tenderness (R) Extremity: normal range of motion, non-tender, normal inspection, no pedal edema Neurologic: sales floor team member II-XII nml as tested, no motor/sensory deficits, alert, normal mood/affect, oriented x 3 Progress - Progress Progress: 01/15/18 16:14 01/15/18 15:00 EKG STAT 01/15/18 16:09 KCl 20 Meq/Ns [NS W/ KCL 20 meq/Liter] 1,000 ml IVS .QD Sodium Chloride 0.9% 1000ML [Ns 1000 ml] 1,000 ml IVS .QD Laboratory Results WBC 7.2 K/mm3 (4.8-10.8) 01/15/18 14:52 RBC 4.28 M/mm3 (4.70-6.10) L 01/15/18 14:52 Hgb 14.7 gm/dL (14.0-18.0) 01/15/18 14:52 Hct 42.8 % (42.0-52.0) 01/15/18 14:52 MCV 100.0 fl (80.0-94.0) H 01/15/18 14:52 MCH 34.3 pg (27.0-31.0) H 01/15/18 14:52 MCHC 34.3 g/dL (33.0-37.0) 01/15/18 14:52 RDW 13.7 % (11.5-14.5) 01/15/18 14:52 Plt Count 215 K/mm3 (130-400) 01/15/18 14:52 MPV 8.0 fl (7.40-10.4) 01/15/18 14:52 Absolute Neuts (auto) 4.30 K/uL (1.8-6.8) 01/15/18 14:52 Absolute Lymphs (auto) 1.40 K/uL (1.0-3.4) 01/15/18 14:52 Absolute Monos (auto) 1.30 K/uL (0.2-0.8) H 01/15/18 14:52 Absolute Eos (auto) 0.10 K/uL (0.0-0.4) 01/15/18 14:52 Absolute Basos (auto) 0.00 K/uL (0.0-0.1) 01/15/18 14:52 Neutrophils % 60.2 % (42.0-78.0) 01/15/18 14:52 Lymphocytes % 18.8 % (20.0-50.0) L 01/15/18 14:52 Monocytes % 18.5 % (2.0-9.0) H 01/15/18 14:52 Eosinophils % 2.0 % (1.0-5.0) 01/15/18 14:52 Basophils % 0.5 % (0.0-2.0) 01/15/18 14:52 Sodium 122 mmol/L (135-145) L 01/15/18 14:52 Potassium 3.2 mmol/L (3.6-5.0) L 01/15/18 14:52 Chloride 88 mmol/L (101-111) L 01/15/18 14:52 Carbon Dioxide 26 mmol/L (21-31) 01/15/18 14:52 Anion Gap 11.2 (12-18) L 01/15/18 14:52 BUN 7 mg/dL (7-18) 01/15/18 14:52 Creatinine 0.71 mg/dL (0.6-1.3) 01/15/18 14:52 BUN/Creatinine Ratio 9.9 (10-20) L 01/15/18 14:52 Random Glucose 114 mg/dL (70-105) H D 01/15/18 14:52 Serum Osmolality 244.8 mOsm/L (275-295) L* 01/15/18 14:52 Calcium 8.6 mg/dL (8.4-10.2) 01/15/18 14:52 Total Bilirubin 0.4 mg/dL (0.2-1.0) 01/15/18 14:52 AST 22 IU/L (10-42) 01/15/18 14:52 ALT 26 IU/L (10-60) 01/15/18 14:52 Alkaline Phosphatase 62 IU/L (42-121) 01/15/18 14:52 Creatine Kinase 166 IU/L (38-174) 01/15/18 14:52 CK-MB (CK-2) 4.4 ng/mL (0.0-4.4) 01/15/18 14:52 CK-MB (CK-2) % Not Reportable 01/15/18 14:52 Troponin I < 0.02 ng/mL (0.01-0.05) 01/15/18 14:52 Serum Total Protein 6.3 gm/dL (6.4-8.2) L 01/15/18 14:52 Albumin 3.8 g/dl (3.2-5.5) 01/15/18 14:52 Globulin 2.5 gm/dL (2.3-3.5) 01/15/18 14:52 Albumin/Globulin Ratio 1.5 (1.1-1.9) 01/15/18 14:[address] Patient Name: ZACH GUZMAN Gender: Male Date of : 1950 Referring Physician: LATOYA TALLEY Organization: [facility] Accession Number: [id number] Requested Date: January 15, 2018 14:52 Report Status: Final Requested Procedure: 1 Procedure Description: Abdoment/Pelvis w/o Contrast Modality: CT Findings Reporting MD: Reed Murillo Fellow MD: Not available Dictation Time: Environmental Web Crawler: Not available Dip Stand Loader Date: Study: CT abdomen and pelvis. Indication: hematuria ?kidney stones Technique: CT of the abdomen and pelvis obtained without intravenous contrast. This exam was performed according to our departmental dose-optimization program, which includes automated exposure control, adjustment of the mA and/or kV according to patient size and/or use of iterative reconstruction technique. Comparison: None. Findings: Patchy bibasilar atelectasis. Mild cardiomegaly. Coronary artery and abdominal aortic atherosclerosis. Several tiny subcentimeter low-density hepatic lesions noted and too small to characterize. Gallbladder contracted. Pancreas, spleen, adrenal glands, kidneys, bladder, prostate gland demonstrate normal unenhanced CT appearance. Colonic diverticulosis. Appendix not visualized. Stomach and small bowel unremarkable. No free fluid. No free air. No pathologically enlarged lymphadenopathy. Degenerative changes of the spine noted. Impression: No CT evidence of hydronephrosis or nephrolithiasis. If high clinical concern for renal mass, correlation with renal mass protocol CT abdomen and pelvis with IV contrast recommended. Extensive atherosclerosis. Colonic diverticulosis. Additional findings as above. Discussed with auto collision repair instructor and will admit for 24 hour urine work up and IVF to treat hyponatremia Departure - Departure Clinical Impression: Hyponatremia with decreased serum osmolality, Hypokalemia Disposition: Admit Patient Condition: Fair Departure Forms: ED Discharge - Pt. Copy, Patient Portal Self Enrollment Referrals: Saray Dobson NP [Primary Care Provider] - 1-2 Weeks
--- NOTE | 2018-01-15 15:17 | CT ---
Study: CT abdomen and pelvis. Indication: hematuria ?kidney stones Technique: CT of the abdomen and pelvis obtained without intravenous contrast. This exam was performed according to our departmental dose-optimization program, which includes automated exposure control, adjustment of the mA and/or kV according to patient size and/or use of iterative reconstruction technique. Comparison: None. Findings: Patchy bibasilar atelectasis. Mild cardiomegaly. Coronary artery and abdominal aortic atherosclerosis. Several tiny subcentimeter low-density hepatic lesions noted and too small to characterize. Gallbladder contracted. Pancreas, spleen, adrenal glands, kidneys, bladder, prostate gland demonstrate normal unenhanced CT appearance. Colonic diverticulosis. Appendix not visualized. Stomach and small bowel unremarkable. No free fluid. No free air. No pathologically enlarged lymphadenopathy. Degenerative changes of the spine noted. Impression: No CT evidence of hydronephrosis or nephrolithiasis. If high clinical concern for renal mass, correlation with renal mass protocol CT abdomen and pelvis with IV contrast recommended. Extensive atherosclerosis. Colonic diverticulosis. Additional findings as above. Electronically signed by: Reed Murillo MD 01/15/2018 3:16 PM CDT
--- NOTE | 2018-01-15 15:17 | RAD ---
Study: Frontal and Lateral Views of the Chest. Indication: shortness of breath Comparison: December 15, 2017. Impression: Heart size normal. Lungs clear. No acute osseous abnormality. Electronically signed by: Reed Murillo MD 01/15/2018 3:16 PM CDT
[2018-01-15] MEDS ORDERED: SODIUM CHLORIDE 0.9% 1000ML 1,000 ML IVS PRN (16:09)
[2018-01-15] MEDS ORDERED: KCL 20 MEQ/NS 1,000 ML IVS PRN (16:09)
[2018-01-15] MEDS ORDERED: ALPRAZolam 0.25 MG TAB PO PRN (16:29)
--- NOTE | 2018-01-15 16:56 | HP ---
SUPERVISING PHYSICIAN: Vimal Saini M.D. CHIEF COMPLAINT: Generalized weakness. HISTORY OF PRESENT ILLNESS: This is a 68 year-old male patient who came to the Emergency Room due to weakness and low sodium and potassium levels. He started feeling ill about a week ago. He had some sinus congestion and thought that he may have had a sinus infection. He had become a little bit more short of breath and has a history of angina as well and thought that it was present at that point. He was seen yesterday at the clinic and UA showed some hematuria. He had an x-ray but I guess there were no results of that. He was called by the office today to say that his sale and potassium levels were low and that he should go to the Emergency Room if he continued to feel sick and weak. He says he just generally did not feel good all over. He states that his sinus congestion has resolved and his shortness of breath has improved as well, but he still had a general feeling of not feeling well and the weakness. When he came into the Emergency Room he was evaluated by the E. [facility]. physician. His sodium was shown to be 122 and potassium was 3.2. White count was normal. He had a CT scan of the abdomen and pelvis which ruled out kidney stones but due to his weakness and hyponatremia, he was referred for admission. I actually saw him a month ago today for chest pain. He developed a mildly elevated troponin and continuous chest pain on that admission, so I did send him to [facility]. He states that at that point Dr. Berumen took him to the [facility] and did an angioplasty of existing stents. He said it was the " maker." I do not have any accurate records from that [facility] admission. At time of examination the patient is alert and oriented. He does look a little run down at this time and his vital signs are acceptable. PAST MEDICAL HISTORY: 1. Diabetes mellitus. 2. Hypertension. 3. Coronary artery disease with recent angioplasty. 4. Hyperlipidemia. 5. Congestive heart failure. 6. Previous history of kidney infections but does not have them any longer. 7. Posttraumatic stress disorder. PAST SURGICAL HISTORY: 1. Multiple hernia repairs, inguinal and abdominal. 2. Appendectomy. 3. Percutaneous transluminal coronary angioplasty with stents times 4. 4. Recent angioplasty last month at [facility]. CURRENT MEDICATIONS: 1. Amlodipine 10 mg p.o. daily. 2. Atorvastatin 80 mg p.o. at bedtime. 3. BuSpar 10 mg p.o. b.i.d. 4. Plavix 75 mg p.o. daily. 5. Hydrochlorothiazide p.o. daily. 6. Lisinopril 2.5 mg p.o. daily. 7. Metformin 850 mg p.o. b.i.d. 8. Ranexa 1,000 mg p.o. b.i.d. 9. Sertraline 150 mg p.o. daily. ALLERGIES: NO KNOWN DRUG ALLERGIES. FAMILY HISTORY: Coronary artery disease in his father who is . SOCIAL HISTORY: Distant history of smoking, quit in 1996. Smoked a pack per day prior to that. No drinking. No illicit drugs. REVIEW OF SYSTEMS: CONSTITUTIONAL: No fever or chills. No recent weight loss or weight gain, but he has a generalized feeling of malaise. HEENT: Previous sinus congestion which he states has improved. No headaches, vision changes, ear pain or throat pain. RESPIRATORY: He did have some shortness of breath, but it has actually resolved. No cough, hemoptysis or pleuritic chest pain. CARDIOVASCULAR: He does have a history of angina. He has not had any palpitations or peripheral edema. GASTROINTESTINAL: No nausea, vomiting, diarrhea, constipation or abdominal pain. GENITOURINARY: No dysuria, frequency, but he did have some flank pain. HEMATOLOGIC: No easy bruising or transfusion reaction. ENDOCRINE: No polydipsia, polyuria, polyphagia. No heat or cold intolerance. NEUROLOGIC: No dizziness, syncope or paresthesias. PHYSICAL EXAMINATION: VITAL SIGNS: Blood pressure is 113/73, heart rate 56, respiratory rate 18, temperature 97.4, oxygen saturation 97%. GENERAL: Mr. Vazquez is a 68 year-old male patient who is in no active distress currently. HEENT: Normocephalic and atraumatic. EYES: Pupils are equal and reactive. NOSE: No drainage. THROAT: Moist mucosa. NECK: Supple. Midline trachea. No jugular venous distention. CHEST: Symmetrical with equal rise and fall of the chest with inspiration and expiration. Lung sounds are clear to auscultation bilaterally. CARDIOVASCULAR: Regular rate and rhythm. Normal S1 and S2. ABDOMEN: Soft. Positive bowel sounds. GENITOURINARY: Exam is deferred. EXTREMITIES: Lower extremities with no edema. 2+ pulses. Capillary refill is less than 2 seconds. NEUROLOGIC: The patient is alert and oriented. Moves all extremities. Extraocular movements are intact. LABORATORY: Sodium 122, potassium 3.2, chloride 88, CO2 is 26, BUN 7, creatinine 0.71, glucose 114, calcium 8.6, magnesium 1.9. LFTs are normal. White blood cell count 7.2, hemoglobin 14.7, hematocrit 42.8, platelet count 215. Chest x-ray with no acute abnormalities. CT scan of the abdomen and pelvis was negative for kidney stone. Diverticulosis but no diverticulitis. ASSESSMENT: 1. Symptomatic hyponatremia. 2. Hypokalemia. 3. History of coronary artery disease with a recent angioplasty last month. 4. Hypertension. 5. Diabetes mellitus type 2. PLAN: At this point, I am going to put him on regular saline with potassium for replacement. I am going to hold the Hydrochlorothiazide. I have also ordered several labs including TSH, cortisol, ACTH, lipid panel, SPEP, urine osmolality. At this point since he is on medications that could lower his sodium levels, will hold those first. If he continues to have low sodium despite stopping the medications and normal labs, I would look to doing a CT scan of the brain and chest to ensure that there are no masses which could cause an SIADH or something similar. Will continue all other home medications which would not lower his sodium. #[id number] [facility]
[2018-01-15] MEDS ORDERED: GLUCAGON INJ 1 MG VIAL SUBCU PRN (17:27)
[2018-01-15] MEDS ORDERED: SODIUM CHLORIDE 0.9% (FLUSH) 10 ML SYG IV PRN (17:27)
[2018-01-15] MEDS ORDERED: DEXTROSE 50% 25 GM/50 ML SYG IV PRN (17:27)
[2018-01-15] MEDS ORDERED: IV SET AND CAP CHANGE INJ INJ SCH (17:30)
[2018-01-15] MEDS ORDERED: ATORVASTATIN 20 MG TAB PO ONE (20:00)
[2018-01-15] MEDS ORDERED: RANOLAZINE 500 MG TAB PO ONE (20:00)
[2018-01-15] MEDS ORDERED: NON-FORMULARY MEDICATION 1 EA MIS (Atorvastatin Calcium [Lipitor] 80 MG) PO SCH (21:00)
[2018-01-15] MEDS ORDERED: RANOLAZINE 1000 MG PO SCH (21:00)
[2018-01-15] MEDS: INSULIN LISPRO 100 UNITS/ML PEN SUBCU SCH (21:25)
[2018-01-15] MEDS: KCL 20 MEQ/NS 1,000 ML IVS PRN (21:51)
[2018-01-16] MEDS: KCL 20 MEQ/NS 1,000 ML IVS PRN ×2 (05:23→14:33)
[2018-01-16] MEDS ORDERED: NON-FORMULARY MEDICATION 1 EA MIS (Metformin Hcl [Metformin Hcl] 850 MG) PO SCH (07:00)
[2018-01-16] MEDS: INSULIN LISPRO 100 UNITS/ML PEN SUBCU SCH ×4 (07:08→20:53)
[2018-01-16] MEDS: NON-FORMULARY MEDICATION 1 EA MIS (Metformin Hcl [Metformin Hcl] 850 MG) PO SCH ×2 (08:08→17:17)
[2018-01-16] MEDS: amLODIPine BESYLATE 5 MG TAB PO SCH (09:02)
[2018-01-16] MEDS: LISINOPRIL 5 MG TAB PO SCH (09:02)
[2018-01-16] MEDS: RANOLAZINE 500 MG TAB PO SCH ×2 (09:02→20:53)
[2018-01-16] MEDS: CLOPIDOGREL 75 MG TAB PO SCH (09:03)
[2018-01-16] MEDS: SERTRALINE HCL 50 MG TAB PO SCH (10:11)
[2018-01-16] MEDS: busPIRone HCL 5 MG TAB PO SCH ×2 (10:11→20:53)
--- NOTE | 2018-01-16 15:33 | PN ---
DATE: 01/16/18 SUPERVISING PHYSICIAN: George Chou M.D. SUBJECTIVE: The patient reports that he still feels a little bit of weakness and some dizziness at times, but has had no chest pains, nausea, vomiting or diarrhea. He reports that he did not mention on admission that he had had in the past week up to 7 bouts of the diarrhea daily for at least 3 or 4 days prior to admission. He attributed this to his Metformin, however he notes that the diarrhea was a lot more watery than normal. OBJECTIVE: VITAL SIGNS: Temperature 97.7, pulse 57, blood pressure 112/65, respirations 18, satting 96% on room air. I's and O's show a negative balance of 318 with 1182 in, 1500 out. He has had 1 bowel movement. Weight is 83.0 kg. CHEST: Lungs are clear to auscultation. HEART: Regular rate and rhythm. ABDOMEN: Soft, non-tender. Positive bowel sounds. EXTREMITIES: No clubbing, cyanosis or edema. NEUROLOGIC: He is alert and oriented times three. LABORATORY: Sodium now is up to 131, potassium 4.2, serum osmolality 260, glucose has been between 106 and 168, calcium 8.3. ASSESSMENT: 1. Symptomatic hyponatremia, uncertain etiology, although certainly could be contributed to past reported diarrhea as well as exacerbated by Hydrochlorothiazide and antidepressants with the patient showing good response with normal saline infusions. Still consideration of differential to be SIADH. 2. History of coronary artery disease with recent angioplasty in the last month. 3. Hypertension. 4. Diabetes mellitus type 2, stable. PLAN: Will continue with IV fluids at least for another 12 hours and saline lock tonight. I will continue to hold his Hydrochlorothiazide but have resumed his antidepressants. Will monitor his sodium in the morning and should he show stable sodium, certainly will consider discharging. Awaiting a culture result from a culture that was completed this past week at [facility]. Until discharge, will continue to monitor and treat appropriately. #[id number] [facility]
[2018-01-16] MEDS ORDERED: ACETAMINOPHEN 325 MG TAB PO PRN (19:39)
[2018-01-16] MEDS ORDERED: ATORVASTATIN 20 MG TAB PO SCH (21:00)
[2018-01-17] MEDS: INSULIN LISPRO 100 UNITS/ML PEN SUBCU SCH (07:30)
[2018-01-17] MEDS: NON-FORMULARY MEDICATION 1 EA MIS (Metformin Hcl [Metformin Hcl] 850 MG) PO SCH (07:48)
[2018-01-17] MEDS: LISINOPRIL 5 MG TAB PO SCH (08:56)
[2018-01-17] MEDS: SERTRALINE HCL 50 MG TAB PO SCH (08:56)
[2018-01-17] MEDS: amLODIPine BESYLATE 5 MG TAB PO SCH (08:57)
[2018-01-17] MEDS: busPIRone HCL 5 MG TAB PO SCH (08:57)
[2018-01-17] MEDS: CLOPIDOGREL 75 MG TAB PO SCH (08:57)
[2018-01-17] MEDS: RANOLAZINE 500 MG TAB PO SCH (08:57)
[2018-01-17] MEDS ORDERED: SODIUM CHLORIDE 0.9% (FLUSH) 10 ML SYG IV SCH (09:00)
[2018-01-17 10:20] VITALS: BP 137/76; TEMP 97.8; O2SAT 95
--- NOTE | 2018-01-18 09:51 | DS ---
SUPERVISING PHYSICIAN: George Chou MD ADMISSION DIAGNOSIS: 1. Symptomatic hyponatremia. 2. Hypokalemia. 3. History of coronary artery disease with a recent angioplasty within the last 30 days. 4. Hypertension. 5. Diabetes mellitus, type 2. DISCHARGE DIAGNOSIS: 1. Symptomatic hyponatremia secondary to recent gastric loss from extended diarrhea and exacerbated by medications to include Dyazide diuretic, showing improvement with replacement and modification of medication regimen. 2. History of coronary artery disease with a recent angioplasty. 3. Hypertension, stable. 4. Diabetes mellitus, type 2, stable. REASON FOR HOSPITALIZATION: Mr. Vazquez is a 68-year-old male patient who was admitted on 01/15/18 from the Emergency Room due to weakness and low sodium and potassium levels. He started feeling ill about a previous. He had some sinus congestion and thought that he may have had a sinus infection. He had become a little bit more short of breath and has a history of angina as well and thought that it was present at that point. He was seen the day before admission at the clinic and UA showed some hematuria. He had an x-ray at that time was well. He was called by the office today to say that his sodium and potassium levels were low and that he should go to the Emergency Room for evaluation of his illness. On admission, he noted his sinus congestion had resolved and his shortness of breath had improved, but he had been feeling generally not well and weak. It was also noted later that he had had about 5 days worth of extended diarrhea. His sodium level on admission was 122 and potassium was 3.2. He had a CT scan of the abdomen and pelvis which ruled out kidney stones, but due to his weakness and hyponatremia, he was referred for admission. He was actually seen a month previous for chest pain. He developed a mildly elevated troponin and continuous chest pain and was admitted to [facility] in [place]. He states that at that point Dr. Berumen took him to the [facility] and did an angioplasty with existing stents. At the time of admission, he was stable. LABORATORY: CBC on admission showed a normal white count at 7,200, hemoglobin 14.7, hematocrit 42.8, platelet count 215,000. Differential was within normal limits. Chemistries initially on admission showed sodium 122, potassium 3.2, chloride 88, serum osmolality 244. Glucose 114. Magnesium 1.9. Liver functions all within normal limits. Troponin less than 0.02. TSH normal at 2.13. Total cortisol levels were pending. ATCH was pending. Antidiuretic hormone levels were pending. He had an osmolality urine that was pending at time of discharge. He also had protein electrophoresis that was pending at discharge. Additional laboratory studies included urine studies that showed normal urinalysis except for 250 glucose on dipstick. Urine sodium on admission initially was 20, at discharge was 121 and random urine creatinine was 111.25. Discharge sodium was 128. MICROBIOLOGY: There no specimens submitted. RADIOLOGY: CT of the abdomen and pelvis on admission per radiologic interpretation showed no evidence of hydronephrosis or nephrolithiasis. There was note of patchy bibasilar atelectasis, cardiomegaly, several tiny subcentimeter low density hepatic lesions were noted, too small to characterize. Gallbladder was contracted. Pancreas, spleen, adrenal glands, kidneys, bladder and prostate gland were normal in CT appearance. There was note of colonic diverticulosis. Appendix was not visualized. The stomach and small bowel were unremarkable. There was no free fluid, no free air. No pathologic enlargement of lymphadenopathy and degenerative changes of the spine were noted. Please see that report for full details per radiologic interpretation. He had a chest x-ray and per radiologic interpretation of a two view chest showed normal heart size, lungs clear, no acute osseous abnormalities. HOSPITAL COURSE: Mr. Vazquez was admitted as noted with weakness with concerns for hyponatremia. It was noted he was on hydrochlorothiazide 325 mg which was held through his admission. He was started on sodium replacement with normal saline as well as potassium over the period of his hospitalization and 24 hours prior to discharge, he was saline locked at which time his sodium was up to 128. The patient was ambulating without any concerns for weakness and noted he was feeling much better, was asymptomatic and was felt clinically stable enough to be discharged to continue with outpatient management. PLAN: Mr. Vazquez was discharged on 01/17/18 instructions to followup with [facility] with Saray Dobson on Thursday of next week and to call to schedule appointment. He was to have a BMP drawn on Thursday with results sent to the clinic. He was to resume his home medications except for modification of holding his hydrochlorothiazide. All other medications were continued as prior to hospitalization. Diet at discharge was diabetic diet. He was told to restrict his fluids to less than 1800 mL per 24 hour period and to slightly increase his sodium intake over a short period of time, moderately, with increased table salt or salty foods to assist with further management of his sodium levels. Activity was to increase as tolerated. He was instructed to return to the hospital should he have any worsening symptoms or other concerning problems. Discharge condition was stable and improved. #[id number] [facility]
== END 2018-01-17 11:40 | disposition home or self-care (01) | DRG 641 ==
LOC: ER 14:07 → MS 16:55
PROVIDERS: ADMIT Nurse Practitioner; ATTEND Nurse Practitioner Family
DX: E87.1 Hypo-osmolality and hyponatremia (principal); E87.6 Hypokalemia; R19.7 Diarrhea, unspecified; T50.2X5A Adverse effect of carbonic-anhydrase inhibitors, benzothiadiazides and other diuretics, initial encounter; I11.0 Hypertensive heart disease with heart failure; E11.9 Type 2 diabetes mellitus without complications; I25.119 Atherosclerotic heart disease of native coronary artery with unspecified angina pectoris; I50.9 Heart failure, unspecified; E78.5 Hyperlipidemia, unspecified; F43.10 Post-traumatic stress disorder, unspecified; Y92.9 Unspecified place or not applicable; Z95.5 Presence of coronary angioplasty implant and graft; Z79.02 Long term (current) use of antithrombotics/antiplatelets; Z79.84 Long term (current) use of oral hypoglycemic drugs; Z79.899 Other long term (current) drug therapy; Z87.891 Personal history of nicotine dependence

== ENCOUNTER → 2018-01-18 | Outpatient (CLI) | payer OTHER | LOC: LAB.O 09:41 | PROVIDERS: ATTEND Nurse Practitioner Family | DX: E87.1 Hypo-osmolality and hyponatremia (principal) ==

== ENCOUNTER → 2018-05-12 | Outpatient (CLI) | payer OTHER ==
--- NOTE | 2018-05-13 04:52 | RAD ---
Procedure: XR CHEST 2 VIEWS Exam Date: 05/12/2018 Ordering Provider: KAUSHIK Dobson Clinical Indication: DYSPNEA AT REST Comparison: 01/15/2018 Findings: Cardiomediastinal silhouette is within normal limits. Aortic calcification. No focal lung consolidation. No pleural effusion. No pneumothorax. No acute osseous abnormality. Impression: 1. No acute abnormalities in the chest. Electronically signed by: Boaz Deluca MD 05/13/2018 4:50 AM CDT
== END ==
LOC: YCFC.O 15:02
PROVIDERS: ATTEND Nurse Practitioner Family
DX: R06.02 Shortness of breath (principal)

== ENCOUNTER → 2019-11-22 | Outpatient (CLI) | payer MEDICARE, OTHER ==
--- NOTE | 2019-11-22 13:15 | CT ---
EXAM DESCRIPTION: Abdomen/Pelvis w/wo Contrast: Computed Tomography. CLINICAL HISTORY: RIGHT LOWER QUADRANT PAIN COMPARISON: CT scan abdomen and pelvis December 2017. TECHNIQUE: Spiral-axial scaNs at 5 x 5 mm intervals through the abdomen and pelvis before and after 75 mL Optiray 320 nonionic IV contrast. No oral contrast. Coronal and sagittal 2.0 mm reconstructions. 5 mm Delayed helical-axial scans, liver through the pubic symphysis. No adverse reactions. Total Exam DLP 1839 mGy - cm. This exam was performed according to our departmental CT dose-optimization program which includes automated exposure control, adjustment of the mA and/or kV according to patient size and/or use of iterative reconstruction technique; to reduce radiation dose to as low as reasonably achievable (ALARA). FINDINGS: Lung bases and pleura: Bibasilar pleural thickening stable. Liver, Stomach, Spleen, Adrenal Glands: Small cyst lateral segment left hepatic lobe. Otherwise negative. Pancreas, Gallbladder, Ducts: Gallbladder visualized. Duct and pancreas negative. Kidneys and Ureters: 2 cm cyst upper mid left kidney faintly seen on previous noncontrast study with a subcentimeter cyst more inferior and posterior Mesentery: Negative. Aorta: Moderate atherosclerotic calcification with intimal wall thickening minimal calcification of the ostia of major branch vessels. More calcification bilateral common iliac arteries and branches. Small Bowel: Negative. Terminal Ileum/Cecum: Cecum distended by liquefied stool with air-fluid level. Normal caliber of the terminal ileum. Appendix not seen. No fluid collections or inflammatory changes in the surrounding mesentery.. Colon: Fecal matter proximal but no significant distention. Diverticula in the sigmoid which is moderately redundant and contains gas in the superior segment. No complications. Stable since the prior study. Pelvic Organs: Urinary bladder is small with wall thickening. Prostate gland abutting the base of the transverse diameter 4.8 x 3.5 cm. No free fluid. No interval change. Spine and Bony Pelvis: Spondylosis inferior thoracic spine. Abdominal Wall/Back Soft Tissues: Surgical clips superior to the umbilicus may represent prior hernia repair with no hernia seen presently. Stable since the prior study.. IMPRESSION: 1. Appendix not seen on this study or previous study. Cecum slightly distended by liquefied stool. Terminal ileum unremarkable. No soft tissue inflammatory changes. No mass. 2. Stable left hepatic lobe cyst. Stable left renal cysts. No change in atherosclerotic process in the abdominal aorta. Mild diverticulosis with no complication. Prostatic enlargement showing no interval change. Electronically signed by: Julio Hill MD 11/22/2019 1:14 PM CDT
== END ==
LOC: CT 09:04
PROVIDERS: ATTEND Family Medicine
DX: Z01.812 Encounter for preprocedural laboratory examination (principal); K76.89 Other specified diseases of liver; K57.90 Diverticulosis of intestine, part unspecified, without perforation or abscess without bleeding; R19.5 Other fecal abnormalities; N40.0 Benign prostatic hyperplasia without lower urinary tract symptoms; I70.0 Atherosclerosis of aorta

== ENCOUNTER 2019-12-16 05:45 | Day surgery (SDC) | payer MEDICARE ==
--- NOTE | 2019-12-13 12:11 | RAD ---
Study: Frontal and Lateral Radiographs of the Chest. Indication: pre op Comparison: May 12, 2018 Impression: Heart size normal. Lungs clear. No acute osseous abnormality. Electronically signed by: Reed Murillo MD 12/13/2019 12:09 PM CDT
[2019-12-16] MEDS ORDERED: fentaNYL CITRATE INJ 50 MCG/ML 2 ML AMP ONE (07:00)
[2019-12-16] MEDS ORDERED: ceFAZolin SODIUM 1 GM VIAL ONE (07:00)
[2019-12-16] MEDS ORDERED: ePHEDrine SULF 50 MG/ML ONE (07:00)
[2019-12-16] MEDS ORDERED: LIDOCAINE 1% 10 ML VIAL INJ ONE (07:00)
[2019-12-16] MEDS ORDERED: PROPOFOL 200 MG/20 ML VIAL IV ONE (07:00)
[2019-12-16] MEDS ORDERED: MAGNESIUM SULFATE INJ 1 GM/2 ML VIAL ONE (07:00)
[2019-12-16] MEDS ORDERED: MIDAZOLAM INJ 2 MG/2 ML VIAL ONE (07:00)
[2019-12-16] MEDS ORDERED: GLYCOPYRROLATE 0.2 MG/ML VIAL ONE (07:00)
[2019-12-16] MEDS ORDERED: KETOROLAC TROMETHAMINE INJ 30 MG/ML VIAL ONE (07:00)
[2019-12-16] MEDS ORDERED: HYDROmorphone HCL INJ 2 MG/ML VIAL ONE (07:00)
[2019-12-16] MEDS ORDERED: FAMOTIDINE 10 MG/ML ML IV ONE (07:00)
[2019-12-16] MEDS ORDERED: DEXAMETHASONE INJ 10 MG/ML VIAL ONE (07:00)
[2019-12-16] MEDS ORDERED: BUPIVACAINE 0.5% W/EPI 30 ML VIAL INJ ONE ×2 (11:58→12:05)
[2019-12-16] MEDS ORDERED: LACTATED RINGERS 1,000 ML IVS ONE (12:45)
[2019-12-16] MEDS ORDERED: ACETAMINOPHEN W/COD #3 TAB 1 EA TAB PO ONE (13:20)
--- NOTE | 2019-12-16 13:26 | OP ---
DATE OF PROCEDURE: 12/16/19 PREOPERATIVE DIAGNOSIS: 1. Recurrent right inguinal hernia with pain. POSTOPERATIVE DIAGNOSIS: 1. Recurrent right inguinal hernia with pain. PROCEDURE: 1. Exploration of right groin with repair of recurrent right inguinal hernia, incarcerated. 2. Removal of prior mesh. 3. Ilioinguinal nerve block for postoperative pain control. SURGEON: Vimal Schmitz MD. ANESTHESIA: Bassam Batres CRNA, general and local. FINDINGS: The area of firmness with extreme tenderness was directly related to the previous mesh laying there. I could not see any obvious complications. We were able to dissect the cord out confidently and remove that mesh. There was a small medial recurrent hernia aside from the mesh with incarcerated fatty contents. A small amount of bleeding in that area likely from small muscular vessels clipped. COMPLICATIONS: None. ESTIMATED BLOOD LOSS: Minimal. CONDITION: Stable. PLAN: Discharge. INDICATION: He presented with continuing increasing pain in the right groin post hernia repair. Imaging revealed a small recurrent hernia as well as the pain, likely scar related as well. He was consented for the procedure understanding risks and benefits of bleeding, going through the old scar, damage to the testicle, vesicle and atrophy or removal of the testicle possibly required and possible chronic pain from nerve entrapment if a nerve is unidentified. PROCEDURE: General anesthesia was induced. He was prepped and draped in sterile fashion. Anatomic landmarks were identified. Ilioinguinal nerve block was performed with 0.5% Marcaine with epinephrine 3 cc. We then made our incision and subcutaneous tissue was taken down without difficulty. The external oblique aponeurosis was easily identified and identified the firm spot as well. A cut was made. It was undermined with a hemostat to open the external oblique, which we did successfully and identified the firm mass. This was mesh related, just superomedial to the internal ring. We began carefully dissecting the spermatic cord away from the surrounding structures, identifying the vessels as well as the vas deferens. Once this was nicely isolated, we could then better identify the anatomy. The internal ring may have been a little tight for the cord, I am uncertain if that was a factor. The mesh was gently teased with cautery and cut off the underlying muscular tissue. We took it off in a few pieces, getting off all the mesh that we could feel. Medially, near an epigastric, we did have a little bit of oozing. I used a small clip to control that without difficulty. This is where we also saw the hernia. The defect itself was only about 2 cm with fatty contents in it. This was reduced and I used a Raytec to see if we could open up a preperitoneal plane and we could not. This mesh that was used, it almost seemed like it could have been a PHS with an internal layer as well because the mesh did seem to go down and it was down into the preperitoneal plane a little bit, so I could not dissect that preperitoneal plane. I was able to get good tissue at the shelving edge as well as inferiorly to close that defect. This was done with interrupted 2-0 Vicryl sutures. I did not place any more mesh on there. This defect was quite small and if there was an internal mesh, it would be helping. At that point, I found a little more mesh laterally which could be involved in nerves and causing pain, so that was removed as well. At this point, there was excellent hemostasis. Nothing else appeared to be treatable, so the external oblique was closed with a running 2-0 Vicryl and then wound closed in 2 layers of absorbable suture. Dressings were applied. He tolerated the procedure and was awakened and taken to Recovery in stable condition. We did put significant more local around the operative site as well. [facility][id number] [facility]
[2019-12-20 08:57] VITALS: BP 160/90; TEMP 97.7; O2SAT 97
== END 2019-12-16 14:05 | disposition home or self-care (01) ==
LOC: AMB 05:45
PROVIDERS: ATTEND Surgery
DX: K40.91 Unilateral inguinal hernia, without obstruction or gangrene, recurrent (principal); I10 Essential (primary) hypertension; I25.10 Atherosclerotic heart disease of native coronary artery without angina pectoris; E78.00 Pure hypercholesterolemia, unspecified; Z79.899 Other long term (current) drug therapy; Z79.02 Long term (current) use of antithrombotics/antiplatelets
CPT/HCPCS: 00830; 36415; 36416; 49521; 71046; 80048; 82948; 85025; 93005; J0690; J1100; J1170; J1885; J2250; J3010; J3475; J3490; J7120

== ENCOUNTER 2020-02-07 17:24 | Emergency (ER) | payer MEDICARE, OTHER ==
[2020-02-07 18:56] VITALS: BP 145/87; TEMP 98.2; O2SAT 95
[2020-02-07] MEDS ORDERED: SODIUM CHLORIDE 0.9% (FLUSH) 10 ML SYG IV PRN (19:03)
== END 2020-02-07 19:20 | disposition left against medical advice (07) ==
LOC: ER 17:24
DX: J02.9 Acute pharyngitis, unspecified (principal); Z53.29 Procedure and treatment not carried out because of patient's decision for other reasons